=== PATIENT | male | born 1965 | race Caucasian/White ===

== ENCOUNTER 2020-04-10 13:00 | Outpatient (RCR) | payer OTHER ==
[~2020-04-10] VITALS: Ht 180.3 cm; Wt 100.9 kg
[2020-04-10] MEDS ORDERED: QUET300T2 PO (13:12)
[2020-04-10] MEDS ORDERED: TRAZ-227 PO (13:12)
[2020-04-10] MEDS ORDERED: FLUO60TA PO (13:12)
== END 2020-04-10 13:22 | disposition home or self-care (01) ==
LOC: PREOP 13:00
PROVIDERS: ATTEND Otolaryngology Otolaryngology/Facial Plastic Surgery
DX: Z01.818 Encounter for other preprocedural examination (principal)

== ENCOUNTER 2020-04-16 07:24 | Day surgery (SDC) | payer OTHER ==
[~2020-04-16] VITALS: Ht 180.3 cm; Wt 100.9 kg
[2020-04-16] VITALS (10 sets, daily range): BP systolic 106–142; BP diastolic 75–95
[~2020-04-16 07:24] MED LIST: FLUO60TA PO; QUET300T2 PO; TRAZ-227 PO
[2020-04-16] MEDS ORDERED: NS IV 500 ML 500 ML IV PRN (07:28)
[2020-04-16] MEDS ORDERED: MIDAZOLAM SYRUP (VERSED) 10MG/5ML UDC PO ONE (07:30)
[2020-04-16] MEDS ORDERED: APAP 325 MG/10.15 ML LIQ (TYLENOL) UDC PO ONE (07:30)
[2020-04-16] MEDS: LACTATED RINGERS 1,000 ML IV PRN ×2 (07:57→09:49)
[2020-04-16] MEDS ORDERED: fentaNYL INJECTION 100 MCG/2 ML AMP ONE (08:35)
[2020-04-16] MEDS ORDERED: ONDANSETRON 4 MG/2 ML (SDV) Z0FRAN ONE (08:35)
[2020-04-16] MEDS ORDERED: SEVOFLURANE (ULTANE) 15 ML INHAL SOLN ONE (08:35)
[2020-04-16] MEDS ORDERED: ROCURONIUM 10 MG/ML 5 ML SYRINGE IV ONE (08:35)
[2020-04-16] MEDS ORDERED: MIDAZOLAM 2 MG/2 ML (VERSED) VIAL ONE (08:35)
[2020-04-16] MEDS ORDERED: proPOfol 200 MG/20 ML (DIPRIVAN) VIAL IV ONE (08:35)
[2020-04-16] MEDS ORDERED: BSS 15 ML ONE (08:38)
[2020-04-16] MEDS ORDERED: COCAINE HCL 4% 2 ML SYR ONE (08:38)
[2020-04-16] MEDS ORDERED: PHENYLEPHRINE 0.5% NASAL SPR (NEO-SYNEPHRINE) REG ONE (08:38)
--- NOTE | 2020-04-16 08:38 | Progress Note-Pre Operative ---
Pre-Operative Progress Note H&P Reviewed The H&P was reviewed, patient examined and no changes noted. 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
[2020-04-16] MEDS ORDERED: LIDOCAINE/EPI 1%-1:100,000 (XYLOCAINE) 20ML ONE (08:41)
--- NOTE | 2020-04-16 09:12 | Progress Note-Post Operative ---
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 Specimen(s) collected/removed none PÉREZ CARBALLO MD Apr 16, 2020 09:12
[2020-04-16] MEDS ORDERED: D5 1/2 NS W/KCL 20 MEQ/L 1,000 ML IV SCH (09:13)
[2020-04-16] MEDS ORDERED: ACETAMINOPHEN 325 MG TABLET PO PRN (09:15)
[2020-04-16] MEDS ORDERED: PROMETHAZINE INJ 25 MG/ML (PHENERGAN) AMP IVP PRN (09:15)
[2020-04-16] MEDS ORDERED: HYDROcodone/APAP 5 MG/325 MG (LORTAB) TAB PO PRN (09:15)
[2020-04-16] MEDS ORDERED: NEOSTIGMINE 3 MG/3 ML VIAL ONE (09:23)
[2020-04-16] MEDS ORDERED: GLYCOPYRROLATE 0.2 MG/ML (ROBINUL) 2 ML VIAL ONE (09:23)
[2020-04-16] MEDS ORDERED: ESMOLOL 100 MG/10 ML (BREVIBLOC) VIAL ONE (09:42)
[2020-04-16] MEDS ORDERED: HYDROmorphone 2 MG/ML VIAL (DILAUDID) ONE (09:43)
[2020-04-16] MEDS ORDERED: ONDANSETRON 4 MG/2 ML (SDV) Z0FRAN IVP PRN (10:00)
[2020-04-16] MEDS ORDERED: HYDROmorphone 2 MG/ML VIAL (DILAUDID) IV ONE (10:00)
--- NOTE | 2020-04-16 10:50 | Anesthesia-General Post-Op ---
General Patient Condition Mental Status/LOC: Same as Preop Cardiovascular: Satisfactory Nausea/Vomiting: Absent Respiratory: Satisfactory Pain: Controlled Complications: Absent Post Op Complications Complications None Follow Up Care/Instructions Patient Instructions None needed. Anesthesia/Patient Condition Patient Condition Patient is doing well, no complaints, stable vital signs, no apparent adverse anesthesia problems. No complications reported per nursing. [place] [facility] [place] NIDIA ARAGON CRNA Apr 16, 2020 10:50
[2020-04-16] MEDS ORDERED: ACHD5005 PO (11:31)
== END 2020-04-16 11:58 | disposition home or self-care (01) ==
LOC: SDC 07:24
PROVIDERS: ATTEND Otolaryngology Otolaryngology/Facial Plastic Surgery
DX: J34.3 Hypertrophy of nasal turbinates (principal); R09.81 Nasal congestion
CPT/HCPCS: 87081